=== PATIENT | female | born 1985 | race Caucasian/White ===

== ENCOUNTER 2020-09-28 10:10 | Outpatient (REF) | payer OTHER, SELFPAY ==
--- NOTE | 2020-09-28 | MR_ITS ---
EXAMINATION: BRAIN MRI WITHOUT CONTRAST CLINICAL INFORMATION: Chronic daily headache. COMPARISON: No relevant prior imaging. TECHNIQUE: Multiplanar MR imaging of the brain was performed without contrast. FINDINGS: There is no intracranial mass effect or midline shift. No abnormal extra-axial collection. Lateral and third ventricles are normal. No hydrocephalus. Midline structures including the cervicomedullary junction are normal. There is nonspecific reduction of bone marrow signal intensity on T1 sequences. No acute territorial infarct. No pathological magnetic susceptibility artifact. Intracranial vascular flow voids are maintained. There is no mastoid or middle ear effusion. No active paranasal sinus disease. Intracranial vascular flow voids are grossly maintained. No active paranasal sinus disease. MR/MR head/brain wo con IMPRESSION: There is nonspecific reduction of bone marrow signal intensity on T1 sequences. This finding can be seen in setting of anemia or red marrow reconversion. Correlation with the patient's complete blood count is therefore recommended. Otherwise normal brain MRI.
== END 2020-09-28 10:11 | disposition home or self-care (01) ==
LOC: HO.MRI 10:10
PROVIDERS: Visit Provider Psychiatry & Neurology Neurology
DX: R51.9 Headache, unspecified (principal)
CPT/HCPCS: 70551

== ENCOUNTER 2023-07-19 08:30 | Outpatient (AMB) | payer OTHER, SELFPAY ==
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
[2023-07-19 08:34] VITALS: BP 122/72; PULSE 84; O2SAT 100; BMI 31.5
== END 2023-07-19 09:32 | disposition home or self-care (01) ==
PROVIDERS: PCP Internal Medicine; Visit Provider Nurse Practitioner Family
DX: G43.009 Migraine without aura, not intractable, without status migrainosus (principal); G43.109 Migraine with aura, not intractable, without status migrainosus; G47.9 Sleep disorder, unspecified; R06.83 Snoring; G47.19 Other hypersomnia
CPT/HCPCS: 99204

== ENCOUNTER → 2023-07-19 08:30 | Outpatient (BNVA) | payer OTHER, SELFPAY | PROVIDERS: PCP Internal Medicine; Visit Provider Nurse Practitioner Family ==